=== PATIENT | male | born 1985 | race Two or more races ===

== ENCOUNTER 2017-11-09 11:03 | Emergency (ER) | payer OTHER ==
[2017-11-09 11:24] VITALS: BP 117/52; PULSE 71; TEMP 98.2; BMI 23.0
[2017-11-09] MEDS ORDERED: diazePAM 5 MG TABLET PO ONE (11:35)
[2017-11-09] MEDS ORDERED: RANITIDINE HCL 150 MG TABLET (FP) PO ONE ×2 (11:35→11:50)
[2017-11-09] MEDS ORDERED: KETOROLAC TROMETHAMINE 60 MG/2 ML VIAL IM ONE ×2 (11:35→11:50)
[2017-11-09] MEDS ORDERED: diazePAM 5 MG TABLET ONE (11:39)
[2017-11-09] MEDS ORDERED: KETOROLAC TROMETHAMINE 60 MG/2 ML VIAL ONE ×2 (11:39→11:52)
[2017-11-09] MEDS ORDERED: RANITIDINE HCL 150 MG TABLET (FP) ONE ×2 (11:39→11:53)
--- NOTE | 2017-11-09 11:54 | PDOC ---
History of Present Illness - General Chief Complaint: Back Pain Stated Complaint: BACK PAIN - History of Present Illness Initial Comments: 32-year-old male with past medical history significant for asthma for which he takes albuterol and ALLERGIES to Benadryl presents for evaluation of left-sided lower back pain. He states at work today about 2 hours prior to his presentation in the emergency room he was lifting something heavy and he felt a strain in his lower back he now has left-sided lower back pain with posterior lateral leg radiculopathy. He denies loss of bowel or bladder function or saddle paresthesias. 11/09/17 11:50 Past History - Past Medical History Allergies/Adverse Reactions: Allergies Allergy/AdvReac Type Severity Reaction Status Date / Time diphenhydramine HCl AdvReac Intermediate Verified 11/09/17 11:22 [From Benadryl] Home Medications: Ambulatory Orders Cyclobenzaprine HCl [Flexeril 10 mg] 10 mg PO HS PRN #10 tablet 11/09/17 Ibuprofen [Motrin -] 600 mg PO TID #30 tablet 11/09/17 Asthma: Yes COPD: No DVT: No Dementia: No - Family Disease History Family Disease History: Diabetes: Mother (asthma) - Immunization History Immunization Up to Date: Yes - Suicide/Smoking/Psychosocial Hx Smoking History: Never smoked Have you smoked in the past 12 months: No Number of Cigarettes Smoked Daily: 5 Cigars Per Day: 0 Information on smoking cessation initiated: No 'Breaking Loose' booklet given: 12/26/15 Hx Alcohol Use: No Drug/Substance Use Hx: No Substance Use Type: None Review of Systems - Review of Systems Musculoskeletal: Yes: Back Pain All Other Systems: Reviewed and Negative *Physical Exam - Vital Signs Last Vital Signs Temp Pulse Resp BP Pulse Ox 98.2 F 71 16 117/52 100 11/09/17 11:22 11/09/17 11:22 11/09/17 11:22 11/09/17 11:22 11/09/17 11:22 - Physical Exam Comments: Lumbar spine skin color and temperature are normal there is minimal left-sided paralumbar musculature spasm. He has 5 out of 5 strength in bilateral lower extremities including EHL, plantar flexion, dorsiflexion, hip flexion, quadriceps, hamstrings. He has a negative straight leg raise test on the right positive straight leg raise test on the left producing lower back pain and posterior lateral leg radiculopathy to the level of his knee. He has no gross sensorimotor deficits he's neurovascularly intact. His thighs and calves are soft and nontender. 11/09/17 11:51 Medical Decision Making - Medical Decision Making This is a lumbar spine strain I will treat him with Toradol and Zantac in the emergency room and have him follow-up with spine surgery as an outpatient. I'll give him a prescription for Motrin and Flexeril. 11/09/17 11:52 *DC/Admit/Observation/Transfer Diagnosis at time of Disposition: Lumbar spine strain, Lumbar radiculopathy - Discharge Dispostion Disposition: HOME Condition at time of disposition: Improved Decision to Admit order: No - Prescriptions Prescriptions: Cyclobenzaprine HCl [Flexeril 10 mg] 10 mg PO HS PRN #10 tablet PRN Reason: Muscle Spasms Ibuprofen [Motrin -] 600 mg PO TID #30 tablet - Referrals Referrals: Saroj Ennis MD [Staff Physician] - - Patient Instructions Printed Discharge Instructions: Low Back Pain, DI for Low Back Pain, Lumbar Radiculopathy, DI for Lumbar Radiculopathy Additional Instructions: Please follow-up with spine surgery within the next 1-2 days for further evaluation and treatment options. I've called when a muscle relaxer which should be taken at night prior to bedtime. It's one tablet and it will make you sleepy. The anti-inflammatory should be taken with food and that is 3 times a day. Please stop if it bothers her stomach. Return to the emergency room should her symptoms worsen or go unresolved. - Post Discharge Activity
== END 2017-11-09 12:23 | disposition home or self-care (01) ==
LOC: JERFT 11:03
PROC: 3E0233Z Introduction of Anti-inflammatory into Muscle, Percutaneous Approach (ICD-10-PCS; principal; 2017-11-09)
DX: M54.5 Low back pain (principal); X50.0XXA Overexertion from strenuous movement or load, initial encounter; Y93.H2 Activity, gardening and landscaping; Y92.89 Other specified places as the place of occurrence of the external cause; Y99.0 Civilian activity done for income or pay
CPT/HCPCS: 99281-25

== ENCOUNTER 2017-11-10 07:01 | Emergency (ER) | payer OTHER ==
[2017-11-10 07:38] VITALS: BP 127/60; PULSE 74; TEMP 98.5; BMI 23.0
[2017-11-10] MEDS ORDERED: KETOROLAC TROMETHAMINE 30 MG/1 ML VIAL IM ONE (07:53)
--- NOTE | 2017-11-10 08:00 | PDOC ---
History of Present Illness - General Chief Complaint: Back Pain Stated Complaint: BACK PAIN Time Seen by Provider: 11/10/17 07:45 - History of Present Illness Initial Comments: 11/10/17 08:11 "The patient is a 32 year old male, with a significant past medical history of asthma(on Albuterol prn), who presents to the emergency department with left lower back pain for approximately 2 days. 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 Patient reports presenting to the ED yesterday with similar symptoms and was given Flexeril and Motrin with some relief of symptoms. Patient endorses worsening back pain upon awakening, prompting him to return to the ER. He reports his pain ocassionally radiates into his left buttock, but denies any associated numbness, tingling, neck pain, headache, bowel or bladder incontinence. Denies saddle anesthesia. He denies any other trauma. Pt is still able to ambulate unassisted. Allergies: Benadryl Past Surgical History: None reported. Social History: Non smoker. No ETOH or recreational drug use. " Past History - Past Medical History Allergies/Adverse Reactions: Allergies Allergy/AdvReac Type Severity Reaction Status Date / Time diphenhydramine HCl AdvReac Intermediate Verified 11/10/17 07:34 [From Benadryl] Home Medications: Ambulatory Orders Cyclobenzaprine HCl [Flexeril 10 mg] 10 mg PO HS PRN #10 tablet 11/09/17 Ibuprofen [Motrin -] 600 mg PO TID #30 tablet 11/09/17 Naproxen 500 mg PO BID #30 tablet 11/10/17 Asthma: Yes COPD: No DVT: No Dementia: No - Family Disease History Family Disease History: Diabetes: Mother (asthma) - Immunization History Immunization Up to Date: Yes - Suicide/Smoking/Psychosocial Hx Smoking History: Never smoked Have you smoked in the past 12 months: No Number of Cigarettes Smoked Daily: 20 Cigars Per Day: 0 Information on smoking cessation initiated: No 'Breaking Loose' booklet given: 12/26/15 Hx Alcohol Use: No Drug/Substance Use Hx: No Substance Use Type: None Review of Systems - Review of Systems Comments:: 11/10/17 08:12 "GENERAL/CONSTITUTIONAL: No fever or chills. No weakness. HEAD, EYES, EARS, NOSE AND THROAT: No change in vision. No ear pain or discharge. No sore throat. CARDIOVASCULAR: No chest pain or shortness of breath. RESPIRATORY: No cough, wheezing, or hemoptysis. GASTROINTESTINAL: No nausea, vomiting, diarrhea or constipation. GENITOURINARY: No dysuria, frequency, or change in urination. MUSCULOSKELETAL: +Left back/buttock pain. No joint or muscle swelling. No neck pain. SKIN: No rash NEUROLOGIC: No headache, vertigo, loss of consciousness, or change in strength/ sensation. ENDOCRINE: No increased thirst. No abnormal weight change. HEMATOLOGIC/LYMPHATIC: No anemia, easy bleeding, or history of blood clots. ALLERGIC/IMMUNOLOGIC: No hives or skin allergy. " *Physical Exam - Vital Signs Last Vital Signs Temp Pulse Resp BP Pulse Ox 98.5 F 74 16 127/60 100 11/10/17 07:35 11/10/17 07:35 11/10/17 07:35 11/10/17 07:35 11/10/17 07:35 - Physical Exam Comments: 11/10/17 08:26 "GENERAL: Awake, alert, and fully oriented, in no acute distress. HEAD: No signs of trauma EYES: PERRLA, EOMI, sclera anicteric, conjunctiva clear ENT: Auricles normal inspection, hearing grossly normal, nares patent, oropharynx clear without exudates. Moist mucosa NECK: Nontender, no stepoffs, Normal ROM, supple, no lymphadenopathy, JVD, or masses LUNGS: Breath sounds equal, clear to auscultation bilaterally. No wheezes, and no crackles HEART: Regular rate and rhythm, normal S1 and S2, no murmurs, rubs or gallops ABDOMEN: Soft, nontender, normoactive bowel sounds. No guarding, no rebound. No masses EXTREMITIES: Normal range of motion, no edema. No clubbing or cyanosis. No cords, erythema, or tenderness NEUROLOGICAL: Cranial nerves II through XII intact. 5/5 strength and sensation in all extremities, Normal speech, normal gait, normal cerebellar function SKIN: Warm, Dry, normal turgor, no rashes or lesions noted. " Medical Decision Making - Medical Decision Making 11/10/17 07:59 32 M with lower back pain after lifting something at work. No clinical signs of cord compression or cauda equina. Normal neuro exam, pt ambulatory with normal gait. - Toradol IM - DC with ortho f/u Pt is well appearing, with normal vitals. Clinically stable for DC at this time. I discussed the physical exam findings, ancillary test results and final diagnoses with the patient. I answered all of the patient's questions. The patient was satisfied with the care received and felt comfortable with the discharge plan and treatment plan. The patient agrees to follow up with the primary care physician within 24-72 hours. *DC/Admit/Observation/Transfer Diagnosis at time of Disposition: Back pain - Discharge Dispostion Disposition: HOME - Prescriptions Prescriptions: Naproxen 500 mg PO BID #30 tablet - Referrals Referrals: Saroj Casiano MD [Staff Physician] - - Patient Instructions Printed Discharge Instructions: Low Back Pain Additional Instructions: Follow up with orthopedics for further evaluation of your back pain. You will likely need a MRI. Take one naproxen every 12 hours for pain. Do not any ibuprofen or aspirin while you are taking this medication. If you experience worsening pain, weakness or numbness in your legs, difficulty controlling your bowel or bladder, or any other concerning symptoms, return to the ER immediately. - Post Discharge Activity - Attestations Physician Attestion: 11/10/17 07:59 I, Dr. Girma Loya MD, attest that this document has been prepared under my direction and personally reviewed by me in its entirety. I further attest, that it accurately reflects all work, treatment, procedures and medical decision -making performed by me.
[2017-11-10] MEDS ORDERED: KETOROLAC TROMETHAMINE 30 MG/1 ML VIAL ONE (08:54)
== END 2017-11-10 10:43 | disposition home or self-care (01) ==
LOC: JER 07:01
PROC: 3E0233Z Introduction of Anti-inflammatory into Muscle, Percutaneous Approach (ICD-10-PCS; principal; 2017-11-10)
DX: S39.82XA Other specified injuries of lower back, initial encounter (principal); X50.0XXA Overexertion from strenuous movement or load, initial encounter; Y93.H2 Activity, gardening and landscaping; Y92.89 Other specified places as the place of occurrence of the external cause; Y99.0 Civilian activity done for income or pay
CPT/HCPCS: 99282-25

== ENCOUNTER 2018-01-29 13:41 | Emergency (ER) | payer OTHER ==
[2018-01-29 13:53] VITALS: BP 122/69; PULSE 112; TEMP 99.4; BMI 24.5
[2018-01-29] MEDS ORDERED: DEXAMETHASONE LIQUID 0.5 MG/5 ML 240 ML BULK BOTTLE PO ONE (15:00)
--- NOTE | 2018-01-29 15:01 | PDOC ---
History of Present Illness - General Chief Complaint: Asthma Stated Complaint: ASTHMA Time Seen by Provider: 01/29/18 14:57 - History of Present Illness Initial Comments: 32-year-old male with past medical history significant for asthma presents for evaluation of exacerbation of asthma since last night when he was around dogs and cats which she is ALLERGIC to. He has no other associated symptoms besides shortness of breath. 01/29/18 15:00 Past History - Past Medical History Allergies/Adverse Reactions: Allergies Allergy/AdvReac Type Severity Reaction Status Date / Time diphenhydramine HCl AdvReac Intermediate Verified 01/29/18 13:52 [From Benadryl] Home Medications: Ambulatory Orders Budesonide [Rhinocort Allergy] 1 spray NS ONCE #1 spray.pump 01/29/18 Cetirizine HCl/Pseudoephedrine [Zyrtec-D Tablet] 1 each PO DAILY #30 tab.er.12h 01/29/18 Asthma: Yes COPD: No DVT: No Dementia: No - Family Disease History Family Disease History: Diabetes: Mother (asthma) - Immunization History Immunization Up to Date: Yes - Suicide/Smoking/Psychosocial Hx Smoking History: Never smoked Have you smoked in the past 12 months: No Number of Cigarettes Smoked Daily: 20 Cigars Per Day: 0 'Breaking Loose' booklet given: 12/26/15 Hx Alcohol Use: No Drug/Substance Use Hx: No Substance Use Type: None Review of Systems - Review of Systems Respiratory: Yes: Shortness of Breath, Wheezing All Other Systems: Reviewed and Negative *Physical Exam - Vital Signs Last Vital Signs Temp Pulse Resp BP Pulse Ox 99.4 F 112 H 18 122/69 95 01/29/18 13:50 01/29/18 13:50 01/29/18 13:50 01/29/18 13:50 01/29/18 13:50 - Physical Exam Comments: 01/29/18 15:00 HEAD: NC/AT EYES: Conjuntiva clear Ears: Canals and TM's normal NOSE: No d/c THROAT: Moist mucous membrances, oral pharanx clear, uvula midline NECK: Supple without adenopathy CARDIAC: S1 S2 LUNGS: Full and Equal breath sounds, mild wheezing at the left base ABDOMEN: Soft NT ND MS: Full ROM in all joints without edema NEUROLOGIC: No gross sensory or motor deficits, NVID SKIN: Normal color and temperature no lesions or rashes Medical Decision Making - Medical Decision Making Much improved after the fourth DuoNeb treatment and Decadron 01/29/18 15:50 *DC/Admit/Observation/Transfer Diagnosis at time of Disposition: Allergic asthma - Discharge Dispostion Disposition: HOME Condition at time of disposition: Improved Decision to Admit order: No - Referrals Referrals: Kathe De La Rosa [Primary Care Provider] - - Patient Instructions Printed Discharge Instructions: Asthma -- Adult Additional Instructions: Return to the emergency room should symptoms worsen or go unresolved. I've given you a prescription for antihistamine with decongestant. Please take it as directed also given you a prescription for steroid nasal spray. Follow-up with primary care physician once 2 days for further evaluation and treatment options. - Post Discharge Activity
[2018-01-29] MEDS ORDERED: ALBUTEROL SO4 2.5/IPRATROPIUM 0.5 INH SOL 3 ML VIAL.NEB. NEB ONE (15:03)
[2018-01-29] MEDS ORDERED: DEXAMETHASONE SOD PHOSPHATE 10 MG/1 ML VIAL ONE (15:03)
[2018-01-29] MEDS: ALBUTEROL SO4 2.5/IPRATROPIUM 0.5 INH SOL 3 ML VIAL.NEB. NEB SCH ×3 (15:08→15:45)
== END 2018-01-29 15:56 | disposition home or self-care (01) ==
LOC: JERFT 13:41
PROC: 3E0F7GC Introduction of Other Therapeutic Substance into Respiratory Tract, Via Natural or Artificial Opening (ICD-10-PCS; principal; 2018-01-29)
PROC: 3E0F7GC Introduction of Other Therapeutic Substance into Respiratory Tract, Via Natural or Artificial Opening (ICD-10-PCS; 2018-01-29)
PROC: 3E0F7GC Introduction of Other Therapeutic Substance into Respiratory Tract, Via Natural or Artificial Opening (ICD-10-PCS; 2018-01-29)
PROC: 3E0F7GC Introduction of Other Therapeutic Substance into Respiratory Tract, Via Natural or Artificial Opening (ICD-10-PCS; 2018-01-29)
DX: J45.901 Unspecified asthma with (acute) exacerbation (principal); J30.81 Allergic rhinitis due to animal (cat) (dog) hair and dander
CPT/HCPCS: 94640; 99281-25; J7620

== ENCOUNTER 2019-04-20 00:19 | Emergency (ER) | payer OTHER ==
[2019-04-20 00:38] VITALS: BP 142/90; PULSE 89; TEMP 98.3; BMI 24.4
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
== END 2019-04-20 02:19 | disposition home or self-care (01) ==
LOC: JER 00:19
DX: S00.03XA Contusion of scalp, initial encounter (principal); Y04.2XXA Assault by strike against or bumped into by another person, initial encounter; Y93.89 Activity, other specified; Y92.89 Other specified places as the place of occurrence of the external cause; Z88.8 Allergy status to other drugs, medicaments and biological substances; Z87.891 Personal history of nicotine dependence; J45.909 Unspecified asthma, uncomplicated
CPT/HCPCS: 70450-TC; 72125-TC; 99281-25

== ENCOUNTER 2019-05-23 23:27 | Emergency (ER) | payer OTHER ==
[2019-05-23 23:38] VITALS: TEMP 97.9; BMI 25.1
--- NOTE | 2019-05-23 23:57 | PDOC ---
Attending Attestation - Resident Resident Name: Martha Terrell - ED Attending Attestation I have performed the following: I have examined & evaluated the patient, The case was reviewed & discussed with the resident, I agree w/resident's findings & plan - HPI HPI: 05/24/19 02:59 see resident hpi - Physicial Exam PE: 05/24/19 03:00 agree with resident exam - Medical Decision Making 05/24/19 03:00 33-year-old male with epigastric pain intermittently since yesterday Right upper quadrant ultrasound shows no biliary disease Labs are unremarkable EKG within normal limits Patient given Maalox, will DC home with recommended outpatient primary care follow-up
--- NOTE | 2019-05-24 00:07 | PDOC ---
History of Present Illness - General Chief Complaint: Chest Pain Stated Complaint: CHEST PAIN Time Seen by Provider: 05/23/19 23:56 History Source: Patient Exam Limitations: No Limitations - History of Present Illness Initial Comments: 05/24/19 00:00 33YOM with h/o asthma and cigarette smoker who p/w chest pain which started yesterday, resolved by the evening, then recurred today while he was relaxing and watching TV. States it feels like a pressure, points to epigastrum and inferior substernal area. Denies any recent f/c/n/v/d/c, leg swelling or pain, immobility, surgery, black/bloody stool, back pain, neck pain, headache, dysuria , SOB, palpitations, testicular pain or swelling, or other symptoms. Did not take medication for this. Never happened before in his life. Past History - Past Medical History Allergies/Adverse Reactions: Allergies Allergy/AdvReac Type Severity Reaction Status Date / Time diphenhydramine HCl AdvReac Intermediate Verified 04/20/19 00:37 [From Benrajeevl] Home Medications: Ambulatory Orders Budesonide [Rhinocort Allergy] 1 spray NS ONCE #1 spray.pump 01/29/18 Cetirizine HCl/Pseudoephedrine [Zyrtec-D Tablet] 1 each PO DAILY #30 tab.er.12h 01/29/18 Asthma: Yes COPD: No DVT: No Dementia: No - Immunization History Immunization Up to Date: Yes - Psycho Social/Smoking Cessation Hx Smoking History: Current some day smoker Have you smoked in the past 12 months: No Number of Cigarettes Smoked Daily: 1 Cigars Per Day: 0 Information on smoking cessation initiated: Yes 'Breaking Loose' booklet given: 12/26/15 Hx Alcohol Use: No Drug/Substance Use Hx: No Substance Use Type: None Review of Systems - Review of Systems Able to Perform ROS?: Yes Comments:: 05/24/19 00:14 GEN: no fever, chills, malaise, or generalized weakness HEENT: no ear pain, congestion, sore throat, vision change, or eye pain CV: chest pain, palpitations, lightheadedness, syncope, or edema RESP: no SOB, wheezing, or cough GI: upper abdominal pain, no nausea, vomiting, diarrhea, constipation, or rectal bleed : no dysuria, hematuria, or discharge MSK: no muscle weakness or pain, no joint swelling or pain NEURO: no headache, vertigo, numbness, tingling, or focal weakness PSYCH: no SI, HI, or behavior change SKIN: no jaundice, rash, lesions, or unexplained bruises ROS otherwise negative except as noted in HPI *Physical Exam - Vital Signs Last Vital Signs Temp Pulse Resp BP Pulse Ox 97.9 F 73 20 126/82 99 05/23/19 23:33 05/23/19 23:33 05/23/19 23:33 05/23/19 23:33 05/23/19 23:33 - Physical Exam 05/24/19 00:14 GENERAL: well-appearing, A/Ox4, no distress, answers questions appropriately, girlfriend at bedside HEENT: PERRLA, EOMI, moist mucous membranes NECK/BACK: no midline ttp, no spinal stepoff or deformity, no hematoma, full ROM , neck supple CARDIOVASCULAR: regular rate/rhythm, no MGR, strong peripheral pulses, capillary refill <2 seconds, extremities wwp, no edema LUNGS/RESPIRATORY: no respiratory distress, CTAB GI/ABDOMEN: symmetric [id number], normoactive BS, soft, no ttp, no midline pulsatile masses : no CVA tenderness EXTREMITIES: no muscle atrophy, no acute deformity SKIN: warm and dry, no pallor, no jaundice, no rash, no bruising, no skin breakdown, no cuts, no lesions NEUROLOGICAL: GCS 15, CN II-XII grossly intact, 5/5 strength proximally and distally, no facial droop ED Treatment Course - LABORATORY CBC & Chemistry Diagram: 05/24/19 01:00 05/24/19 01:00 - ADDITIONAL ORDERS Additional order review: Laboratory Results 05/24/19 05/24/19 01:00 01:00 Sodium 139 Potassium 4.1 Chloride 107 Carbon Dioxide 26 Anion Gap 7 L BUN 13.9 Creatinine 0.9 Est GFR (CKD-EPI)AfAm 131.44 Est GFR (CKD-EPI)NonAf 113.41 Random Glucose 97 Calcium 8.9 Total Bilirubin 0.2 AST 27 ALT 53 Alkaline Phosphatase 72 Creatine Kinase 120 Troponin I < 0.02 Total Protein 6.6 Albumin 3.3 L Lipase 97 05/24/19 01:00 RBC 4.95 MCV 95.6 MCHC 33.6 RDW 12.7 MPV 9.5 Neutrophils % 46.7 D Lymphocytes % 35.0 D Monocytes % 12.1 H Eosinophils % 5.4 H Basophils % 0.8 - RADIOLOGY Radiology Studies Ordered: Category Date Time Status CHEST X-RAY PORTABLE* [RAD] Stat Radiology 05/24/19 02:12 Taken ABDOMEN US -LIMITED [US] Stat Ultrasound 05/24/19 00:31 Taken Medical Decision Making - Medical Decision Making 05/24/19 00:15 33YOM Pt without PMH p/w chest pain. Initial Vital Signs Temp Pulse Resp BP Pulse Ox 97.9 F 73 20 126/82 99 05/23/19 23:33 05/23/19 23:33 05/23/19 23:33 05/23/19 23:33 05/23/19 23:33 Exam: As noted in Physical Exam section. DDX IBNLT: ACS, pericarditis, tamponade, aortic dissection, AAA, PTX, PE, esophageal tear, esophagitis (e.g. pill, infectious), esophageal stricture, esophageal FB, gastritis, PUD, pancreatitis, cholecystitis, cholangitis, colitis , bowel perforation, PNA/bronchitis, pleurisy, pleuritis, MVP, pulmonary HTN, musculoskeletal, panic/anxiety, etc. W/U ordered: Labs as noted below, EKG CXR. 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 On last reassessment VS are stable, Pts pain is resolved, and exam is benign. The Pts HEART score indicates they are low risk and do not require admission currently. The Pt is appropriate for discharge with close outpatient follow up. They are comfortable with this plan and will follow up with PCP in 1-3 days. Specific return precautions are discussed and they will come back to the ER if necessary. Discharge - Discharge Information Problems reviewed: Yes Clinical Impression/Diagnosis: Chest wall discomfort Condition: Stable - Admission No - Follow up/Referral Referrals: ON STAFF,NOT [Non Staff, Medical] - - Patient Discharge Instructions Patient Printed Discharge Instructions: DI for Chest Pain Additional Instructions: You were seen in the ER for chest pain. We did lab work on your blood and urine , an ultrasound, an electrocardiogram, and a chest x-ray, and we did not find any concerning abnormalities. Your symptoms improved with the medications we gave you in the ER. After our assessment, we do not believe you are having a medical emergency at this time, and we believe you are safe to go home. Take Maalox and over the counter pain medications for your pain, as instructed on the medication label. Please follow up with your primary care provider in 1-3 days. Call their clinic as soon as possible, tell them you were seen in the ER, and tell them you need an appointment. If you have any new or worsening symptoms , especially worsening chest pain, jaw pain, shoulder/arm pain, shortness of breath, sweats, nausea, loss of consciousness, palpitations, or other symptoms, please come back to the ER at any time (24 hours a day). If you are having severe or life threatening symptoms, or symptoms that make it unsafe to drive or have someone drive you, please call 911. - Post Discharge Activity Work/Back to School Note: Back to Work
[2019-05-24 01:41] LABS: BASO % 0.8 % (0-2.0); EOS % 5.4 % (0-4.5); HEMATOCRIT 47.4 % (35.4-49); HEMOGLOBIN 15.9 GM/dL (11.7-16.9); MCH 32.2 pg (25.7-33.7); MCHC 33.6 g/dl (32.0-35.9); MEAN CELL VOLUME 95.6 fl (80-96); MEAN PLT VOLUME 9.5 fl (7.5-11.1); MONO % 12.1 % (3.8-10.2); NEUT % 46.7 % (42.8-82.8); PLATELET COUNT 188 K/MM3 (134-434); RBC 4.95 M/mm3 (4.00-5.60); RDW 12.7 % (11.9-15.9); WHITE BLOOD COUNT 8.5 K/mm3 (4.0-10.0)
[2019-05-24 02:03] LABS: BLOOD UREA NITROGEN 13.9 mg/dL (7-18); CREATININE 0.9 mg/dL (0.55-1.3)
[2019-05-24 02:04] LABS: ALBUMIN 3.3 g/dl (3.4-5.0); BILIRUBIN,TOTAL 0.2 mg/dL (0.2-1); CALCIUM 8.9 mg/dL (8.5-10.1); POTASSIUM 4.1 mmol/L (3.5-5.1); TOT PROT 6.6 g/dl (6.4-8.2)
[2019-05-24] MEDS ORDERED: MAG HYDROX/AL HYDROX/SIMETH 30 ML UNIT-DOSE CUP PO ONE (03:01)
[2019-05-24] MEDS ORDERED: MAG HYDROX/AL HYDROX/SIMETH 30 ML UNIT-DOSE CUP ONE (03:14)
[2019-05-24 03:19] VITALS: BP 118/69; PULSE 74
--- NOTE | 2019-05-24 11:34 | EKG ---
Test Reason : Blood Pressure : / mmHG Vent. Rate : 070 BPM Atrial Rate : 070 BPM P-R Int : 148 ms QRS Dur : 094 ms QT Int : 376 ms P-R-T Axes : 069 065 060 degrees QTc Int : 406 ms NORMAL SINUS RHYTHM NORMAL ECG WHEN COMPARED WITH ECG OF 10-APR-2015 16:33, NO SIGNIFICANT CHANGE WAS FOUND Confirmed by LINCOLN MAHONEY MD ([id number]) on 05/24/2019 11:34:23 AM Referred By: Confirmed By:LINCOLN MAHONEY MD
--- NOTE | 2019-05-24 11:37 | EKG ---
Test Reason : Blood Pressure : / mmHG Vent. Rate : 062 BPM Atrial Rate : 062 BPM P-R Int : 136 ms QRS Dur : 094 ms QT Int : 402 ms P-R-T Axes : 034 066 065 degrees QTc Int : 408 ms NORMAL SINUS RHYTHM NORMAL ECG WHEN COMPARED WITH ECG OF 23-MAY-2019 23:31, NO SIGNIFICANT CHANGE WAS FOUND Confirmed by LINCOLN MAHONEY MD ([id number]) on 05/24/2019 11:37:01 AM Referred By: Confirmed By:LINCOLN MAHONEY MD
== END 2019-05-24 03:15 | disposition home or self-care (01) ==
LOC: JER 23:27
DX: R07.89 Other chest pain (principal); Z88.8 Allergy status to other drugs, medicaments and biological substances; J45.909 Unspecified asthma, uncomplicated; F17.210 Nicotine dependence, cigarettes, uncomplicated
CPT/HCPCS: 36415; 71045-TC-FY; 76705-TC; 80053; 82550; 83690; 84484; 85025; 93005; 93010; 99283-25